=== PATIENT | female | born 1955 | race Two or more races ===

== ENCOUNTER 2020-04-21 07:00 | Day surgery (SDC) | payer OTHER | END 2020-04-21 11:00 | disposition home or self-care (01) | LOC: AMB-ENDOS 07:00 | PROVIDERS: ATTEND Surgery | DX: D12.4 Benign neoplasm of descending colon (principal); Z20.828 Contact with and (suspected) exposure to other viral communicable diseases ==

== ENCOUNTER 2022-11-06 09:57 | Outpatient (CLI) | payer OTHER | END 2022-11-06 10:05 | disposition home or self-care (01) | LOC: RAD 09:57 | PROVIDERS: ATTEND Orthopaedic Surgery Sports Medicine | DX: M21.70 Unequal limb length (acquired), unspecified site (principal) ==